=== PATIENT | male | born 1980 | race American Indian/Alaskan Native ===

== ENCOUNTER 2017-09-07 02:29 | Emergency (ER) | payer SELFPAY ==
[2017-09-07 02:38] VITALS: BP 135/78
[2017-09-07 03:38] LABS: Bilirubin,Urine NEG (Negative); Blood,Urine NEG (Negative); Ketones,Urine 80 mg/dL (Negative); Leukocyte Esterase,Urine NEG (Negative); Mucus,Urine 3+ /HPF; Nitrite,Urine NEG (Negative)
[2017-09-07] MEDS ORDERED: ZITHROMAX PO ONE (05:35)
[2017-09-07] MEDS ORDERED: XYLOCAINE 1% MPF 5 mL INFILTRATI ONE (05:35)
[2017-09-07] MEDS ORDERED: ROCEPHIN IM ONE (05:35)
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
== END 2017-09-07 06:56 | disposition home or self-care (01) ==
LOC: ED 02:29
DX: R36.9 Urethral discharge, unspecified (principal); Z20.2 Contact with and (suspected) exposure to infections with a predominantly sexual mode of transmission; F17.200 Nicotine dependence, unspecified, uncomplicated
CPT/HCPCS: 81001; 87591; 96372; 99283; J0696

== ENCOUNTER 2017-09-10 10:09 | Emergency (ER) | payer OTHER ==
[2017-09-10 10:17] VITALS: BP 150/83
--- NOTE | 2017-09-10 12:25 | Emergency Department Report ---
Chief Complaint: Arrhythmia/Palpitations Stated Complaint: ABDOMINAL PAIN Time Seen by Provider: 09/10/17 12:14 - HPI History of Present Illness: Patient is a 36-year-old male who states that for the past several weeks he has had a lot of stomach growling epigastric discomfort. Patient states this is worsened after he took antibiotics for a presumed STD. Patient states the discomfort is worse when he last flat he occasionally does have a sensation of warmth going into the upper chest. Patient has had some mild nausea with no vomiting. Patient denies fever cough chest pain - ROS Review of Systems: Review of systems is negative except for those elements in HPI - Exam Vital Signs: Vital Signs 09/10/17 10:12 Temperature 97.4 F L Pulse Rate 107 H Respiratory 18 Rate Blood Pressure 150/83 O2 Sat by Pulse 98 Oximetry Physical Exam: Focused physical exam patient is alert and oriented 3 in no acute distress. Patient's heart tones are normal lungs are clear to auscultation abdomen soft nontender normal bowel sounds neuro exam is normal MSE screening note: Focused history and physical exam performed. Due to findings the following was ordered: ED Medical Decision Making - EKG Data -: EKG Interpreted by Ca EKG shows normal: sinus rhythm, axis, intervals, ST-T waves Rate: normal - EKG Data Interpretation: normal EKG - Medical Decision Making Patient is a 36-year-old [place] male who is presenting with GERD symptoms patient will be started on omeprazole be discharged home ED Disposition for MSE Clinical Impression: GERD (gastroesophageal reflux disease) Disposition: DC-01 TO HOME OR SELFCARE Is pt being admited?: No Does the pt Need Aspirin: No Condition: Fair Instructions: Gastroesophageal Reflux Disease (ED) Prescriptions: Omeprazole 20 mg PO QDAY #30 tablet. Referrals: JANINE FERNANDEZ MD [Primary Care Provider] - 3-5 Days
== END 2017-09-10 12:33 | disposition home or self-care (01) ==
LOC: ED 10:09
DX: K21.9 Gastro-esophageal reflux disease without esophagitis (principal)
CPT/HCPCS: 93005; 93010; 99282

== ENCOUNTER 2021-06-25 09:08 | Emergency (ER) | payer OTHER ==
[2021-06-25 09:59] VITALS: BP 120/62
[2021-06-25] MEDS ORDERED: FAMOTIDINE 20 MG TAB PO ONE (11:27)
--- NOTE | 2021-06-25 11:27 | Emergency Department Report ---
ED Abdominal Pain HPI - General Chief Complaint: Abdominal Pain Stated Complaint: STD CHECK Time Seen by Provider: 06/25/21 11:12 Source: patient Mode of arrival: Ambulatory Limitations: No Limitations - History of Present Illness Initial Comments: 40-year-old male presents to the ER today with complaints of abdominal pain. Patient states that he has been having intermittent pain to his upper abdomen for about 1 week. He states that he did vomit once yesterday. He denies any diarrhea or constipation. His last bowel movement he states was this morning and it was normal. He denies any dysuria, urinary frequency or hematuria. He denies any fever or chills. He denies any prior abdominal surgeries in the past. He states that he smokes Black and mild, he denies any illicit drug use or alcohol abuse. Patient also requesting STD testing. He states that he thinks his girlfriend may have had either gonorrhea or chlamydia because she went to get checked but is not exactly sure of a confirmed diagnosis. He reports no symptoms of testicular pain, swelling, or penile discharge. MD Complaint: abdominal pain -: week(s) (1) - Related Data Previous Rx's Medication Instructions Recorded Last Taken Type Omeprazole 20 mg PO QDAY #30 tablet. 09/10/17 Unknown Rx Famotidine [Pepcid] 20 mg PO BID #30 tablet 06/25/21 Unknown Rx Pantoprazole [Protonix] 40 mg PO QDAY #60 tablet 06/25/21 Unknown Rx Allergies Allergy/AdvReac Type Severity Reaction Status Date / Time No Known Allergies Allergy Verified 06/25/21 09:54 ED Review of Systems ROS: Stated complaint: STD CHECK Other details as noted in HPI Comment: All other systems reviewed and negative Constitutional: denies: chills, fever Eyes: denies: eye pain, eye discharge, vision change ENT: denies: ear pain, throat pain, dental pain, hearing loss, epistaxis, congestion Respiratory: denies: cough, shortness of breath, SOB with exertion, SOB at rest, wheezing Cardiovascular: denies: chest pain, palpitations, dyspnea on exertion, edema, syncope, paroxysmal nocturnal dyspnea Gastrointestinal: abdominal pain, vomiting. denies: diarrhea, constipation, hematemesis, hematochezia Genitourinary: denies: urgency, dysuria, frequency, hematuria, discharge, testicular pain, testicular mass Musculoskeletal: denies: back pain, joint swelling, arthralgia, myalgia Skin: denies: rash, lesions, change in color, change in hair/nails, pruritus Neurological: denies: headache, weakness, numbness, paresthesias, confusion, abnormal gait, vertigo Psychiatric: denies: anxiety, depression, auditory hallucinations, visual hallucinations, homicidal thoughts, suicidal thoughts Hematological/Lymphatic: denies: easy bleeding, easy bruising, swollen glands ED Past Medical Hx - Surgical History Additional Surgical History: nasal repair - Social History Smoking Status: Current Every Day Smoker Substance Use Type: None - Medications Home Medications: Home Medications Medication Instructions Recorded Confirmed Last Taken Type Omeprazole 20 mg PO QDAY #30 tablet. 09/10/17 Unknown Rx Famotidine [Pepcid] 20 mg PO BID #30 tablet 06/25/21 Unknown Rx Pantoprazole [Protonix] 40 mg PO QDAY #60 tablet 06/25/21 Unknown Rx ED Physical Exam - General Limitations: No Limitations General appearance: alert, in no apparent distress - Head Head exam: Present: atraumatic, normocephalic, normal inspection - Eye Eye exam: Present: normal appearance, PERRL, EOMI Pupils: Present: normal accommodation - ENT ENT exam: Present: normal exam, mucous membranes moist - Neck Neck exam: Present: normal inspection, full ROM - Respiratory Respiratory exam: Present: normal lung sounds bilaterally. Absent: respiratory distress, wheezes, rales, rhonchi, stridor - Cardiovascular Cardiovascular Exam: Present: regular rate, normal rhythm, normal heart sounds - GI/Abdominal GI/Abdominal exam: Present: soft, tenderness (Mild epigastric tenderness without guarding or rebound). Absent: distended, guarding, rebound, rigid - Neurological Exam Neurological exam: Present: alert, oriented X3, CN II-XII intact, normal gait - Psychiatric Psychiatric exam: Present: normal affect, normal mood - Skin Skin exam: Present: intact ED Course Vital Signs 06/25/21 09:55 Temperature 98.5 F Pulse Rate 75 Respiratory 16 Rate Blood Pressure 120/62 O2 Sat by Pulse 100 Oximetry ED Medical Decision Making - Lab Data Result diagrams: 06/25/21 11:29 06/25/21 11:29 - Radiology Data Radiology results: report reviewed Patient: ISABEL WADE MR#: [id number] : 1980 Acct:[id number] Age/Sex: 40 / M ADM Date: 06/25/21 Loc: ED Attending Dr: Ordering Physician: KITTY GIPSON Date of Service: 06/25/21 Procedure(s): CT abdomen pelvis w con Accession Number(s): [id number] cc: KITTY GIPSON CT ABDOMEN AND PELVIS WITH CONTRAST INDICATION / CLINICAL INFORMATION: Epigastric pain with elevated lipase.. TECHNIQUE: Axial CT images were obtained through the abdomen and pelvis after IV contrast. All CT scans at this location are performed using CT dose reduction for ALARA by means of automated exposure control. COMPARISON: None available. FINDINGS: LOWER CHEST: No significant abnormality. LIVER: Mild heterogeneity. GALLBLADDER: No significant abnormality. BILE DUCTS: No significant abnormality. PANCREAS: No significant abnormality. SPLEEN: No significant abnormality. ADRENALS: No significant abnormality. RIGHT KIDNEY / URETER: No significant abnormality. LEFT KIDNEY / URETER: No significant abnormality. STOMACH / SMALL BOWEL: No significant abnormality. COLON: No significant abnormality. APPENDIX: No significant abnormality. PERITONEUM: No free fluid. No free air. No fluid collection. LYMPH NODES: No significant adenopathy. VASCULAR STRUCTURES: Mild reflux of contrast into the IVC. URINARY BLADDER: No significant abnormality. REPRODUCTIVE ORGANS: No significant abnormality. ADDITIONAL FINDINGS: None. SKELETAL SYSTEM: No significant abnormality. IMPRESSION: 1. Mild heterogeneity of the liver possibly due to mild hepatic congestion. Negative for obstruction or localized inflammation. Signer Name: Srinivasan Anthony MD Signed: 06/25/2021 4:12 PM Workstation Name: [id number] Transcribed By: ANA MARÍA Dictated By: Srinivasan Anthony MD Electronically Authenticated By: Srinivasan Anthony MD Signed Date/Time: 06/25/21 1612 DD/ 1607 - Medical Decision Making All labs reviewed -- CBC and CMP unremarkable. Lipase was elevated at 119 and given pt complaint of epigastric pain CT was ordered to rule out pancreatitis. CT abd and pelvis shows Mild heterogeneity of the liver possibly due to mild hepatic congestion. Negative for obstruction or localized inflammation. Patient currently resting comfortably. He is not currently in any acute distress. He Is not toxic or ill-appearing. He Is neurologically intact with a normal gait. Discussed lab and imaging results with patient. Informed him his pain could be related to gastritis versus peptic ulcer disease. Patient will be prescribed a PPI and an antacid to take, and foods that can aggravate his symptoms and to avoid were discussed with patient. Patient also informed that if his symptoms not better he will need to follow-up with GI for possible endoscopy. As far as his STDs, patient will be given referral to local health department, PCP or urgent care for full STD testing. Patient expressed understanding of all instructions and agree with plan. Patient was stable at time of discharge. - Differential Diagnosis Pancreatitis, cholecystitis, perforation, gastritis, PUD Critical care attestation.: If time is entered above; I have spent that time in minutes in the direct care of this critically ill patient, excluding procedure time. ED Disposition Clinical Impression: Epigastric pain Disposition: HOME / SELF CARE / HOMELESS Is pt being admited?: No Does the pt Need Aspirin: No Condition: Stable Instructions: Gastritis, Adult, Abdominal Pain, Adult, [id number] Additional Instructions: The epigastric pain could be related to gastritis, reflux disease or peptic ulcer disease. You will be prescribed Pepcid and Protonix which can help with your symptoms, but I do recommend follow-up with a GI specialist especially if your symptoms continue for an endoscopy. I do recommend avoiding foods such as spicy foods, acidic foods, caffeine and NSAIDs as these can worsen your pain. you can take Tylenol as needed for pain. You can follow-up with the local health department, urgent care or primary care doctor for all your STD testing including HIV, and hepatitis and syphilis. Return to the ER if your symptoms changes or worsens in any way. Prescriptions: Famotidine [Pepcid] 20 mg PO BID #30 tablet Pantoprazole [Protonix] 40 mg PO QDAY #60 tablet Referrals: [facility] [Provider Group] - 3-5 Days Forms: Work/School Release Form(ED) Time of Disposition: 16:28 Print Language: GREENLANDIC
[2021-06-25 12:04] LABS: Alanine Aminotransferase 8 units/L (7-56); Albumin 4.5 g/dL (3.9-5); BUN/Creatinine Ratio 12; Blood Urea Nitrogen 11 mg/dL (9-20); Calcium 9.3 mg/dL (8.4-10.2); Hemolysis Index 11
[2021-06-25 12:15] LABS: Basophils % (Auto) 0.6 % (0.0-1.8); Eosinophils % (Auto) 0.4 % (0.0-4.3); Hemoglobin 15.9 gm/dl (11.8-15.2); Lymphocytes # (Auto) 1.6 K/mm3 (1.2-5.4); Lymphocytes % (Auto) 21.2 % (13.4-35.0); Mean Corpuscular HGB Conc 34 % (32-34); Mean Corpuscular Volume 92 fl (84-94); Monocytes # (Auto) 0.5 K/mm3 (0.0-0.8); Monocytes % (Auto) 6.5 % (0.0-7.3); Platelet Count 241 K/mm3 (140-440); Red Blood Count 5.12 M/mm3 (3.65-5.03)
[2021-06-25] MEDS ORDERED: SODIUM CHLORIDE 0.9% 1000 ML 1,000 ML IV ONE (12:52)
[2021-06-25] MEDS ORDERED: ONDANSETRON 4 MG/2 ML INJ IV ONE (12:52)
[2021-06-25] MEDS ORDERED: MORPHINE 2 MG/1 ML INJ IV ONE (12:52)
--- NOTE | 2021-06-25 16:17 | Cat Scan Report ---
CT ABDOMEN AND PELVIS WITH CONTRAST INDICATION / CLINICAL INFORMATION: Epigastric pain with elevated lipase.. TECHNIQUE: Axial CT images were obtained through the abdomen and pelvis after IV contrast. All CT sc ans at this location are performed using CT dose reduction for ALARA by means of automated exposure c ontrol. COMPARISON: None available. FINDINGS: LOWER CHEST: No significant abnormality. LIVER: Mild heterogeneity. GALLBLADDER: No significant abnormality. BILE DUCTS: No significant abnormality. PANCREAS: No significant abnormality. SPLEEN: No significant abnormality. ADRENALS: No significant abnormality. RIGHT KIDNEY / URETER: No significant abnormality. LEFT KIDNEY / URETER: No significant abnormality. STOMACH / SMALL BOWEL: No significant abnormality. COLON: No significant abnormality. APPENDIX: No significant abnormality. PERITONEUM: No free fluid. No free air. No fluid collection. LYMPH NODES: No significant adenopathy. VASCULAR STRUCTURES: Mild reflux of contrast into the IVC. URINARY BLADDER: No significant abnormality. REPRODUCTIVE ORGANS: No significant abnormality. ADDITIONAL FINDINGS: None. SKELETAL SYSTEM: No significant abnormality. IMPRESSION: 1. Mild heterogeneity of the liver possibly due to mild hepatic congestion. Negative for obstruction or localized inflammation. Signer Name: Srinivasan Anthony MD Signed: 06/25/2021 4:12 PM Workstation Name: [id number]
== END 2021-06-25 17:14 | disposition home or self-care (01) ==
LOC: ED 09:08
DX: R10.13 Epigastric pain (principal); Z98.890 Other specified postprocedural states; F17.200 Nicotine dependence, unspecified, uncomplicated
CPT/HCPCS: 36415; 74177; 80053; 83690; 83735; 85025; 96361; 96374; 96375; 99284; J2270; J2405; J7030; Q9967